=== PATIENT | male | born 1955 | race Caucasian/White ===

== ENCOUNTER 2016-12-07 21:14 | Inpatient (IN) | payer MEDICARE, MEDICAID ==
[~2016-12-07] VITALS: Ht 172.7 cm; Wt 65.1 kg
[~2016-12-07 21:14] MED LIST: ALAWAY 10 ML10 ML OP; ALBUTEROL2 PUFFS/17 IN; ALLOPURINOL100 MG PO; AMBIEN 10MG TAB10 MG PO; AMLO5TAB PO; ASPIRIN 325MG325 MG PO; BUSPAR 10MG TAB10 MG PO; CHOLESTEROL MED OR; CIPRO 500MG TA500 MG PO; CITALOPRAM20 MG PO; COLCRYS0.6 MG PO; Cephalexin500 MG PO; FLAGYL500 MG PO; FOLIC ACID 1MG T1 MG PO; K-DUR 20MEQ TA20 MEQ PO; LEVSIN0.125 MG OR; LOPRESSOR 50 MG50 MG PO; MAGNESIUM400 MG PO; METOPROLOL SUCC50 M1 PO; NEURONTIN 300M300 MG PO; NEXIUM40 MG PO; NICODERM C21 MG/24 H TD; NORCO 325 MG-51 TAB PO; PANCREASE MT OR; PHENERGAN25 M3 PO; PREDNISONE 20MG20 MG PO; RANITIDINE HCL150 MG PO; SEPTRA DS 800 M1 TAB PO; SIMVASTATIN40 MG PO; THIAMINE 100MG100 MG PO; TRAZODONE 50MG50 MG PO; VENTOLIN H0.09 MG/AC IH; ZANTAC 150150 MG PO
[2016-12-07 21:15] VITALS: BP 123/63
--- NOTE | 2016-12-07 22:54 | Emergency Room Report ---
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 N Clinical Suspician of Infection? N Mental Status: 1 - Regular (Normal Baseline) Sepsis Risk:Severe Sepsis Risk Have you (or family members/close friends) recently traveled outside the [place]? N If Yes, where/when: Have you had exposure to infectious disease within the past month? N TB? Other? Specify: Source patient, RN notes reviewed, family, EMS, old records Exam Limitations no limitations Comment pt with confusion and dec ambulation with dec po intake over the last 2 days- he has falls and no etoh over the last 2 days with hx of pancreatitis - Cardiac Chest Pain Chest pain indicative of cardiac No Timing/Duration this evening Severity moderate ALLERGIES Coded Allergies: No Known Allergies (09/07/16) Home Medications Active Scripts POTASSIUM CHL (Potassium Chloride) 20 MEQ PO DAILY #30 TAB Ref 2 Prov: 04/01/16 Ketotifen Fumarate (Alaway 10 Ml) 1-2 DROP OP TIDP PRN Dry eye #1 BOT Ref 2 Prov: 04/01/16 Hyoscyamine Sulfate (Levsin) 0.125 MG OR Q6 #20 TAB Prov: 06/18/14 PROMETHAZINE HCL (Phenergan 25MG Tab (Geq)) 25 MG PO Q6HP PRN N/V #20 TAB Prov: 06/18/14 Reported Medications Amlodipine Besylate (Amlodipine) 5 MG PO DAILY #30 TAB ASPIRIN (Aspirin 325MG) 325 MG PO DAILY Colchicine (Colcrys) 0.6 MG PO DAILYP PRN GOUT Allopurinol 100 MG PO BID ALBUTEROL (Ventolin Hfa) 2 PUFFS IH Q4HP PRN BREATHING Simvastatin (Simvastatin 40MG Tab) 40 MG PO QPM Metoprolol Tartrate (Lopressor) 50 MG PO DAILY Ranitidine Hcl (Ranitidine 150MG) 300 MG PO QHS TRAZODONE HCL (Trazodone HCl) 50 MG PO QHSP PRN SLEEP AID History Medical History General CAD? No Angina: Yes [place]: No Hypertension? Yes Hyperlipidemia? Yes CHF? No DVT? No PE? No COPD? Yes Asthma? Yes Anemia? No GERD? Yes Gastric ulcers? No GI Bleed? No Hernia? No Thyroid Problems? No Hypothyroidism? No CVA? No Seizures? No Diabetes? No Insulin Dependent: No Insulin Pump: No Home FSBS? No Renal Insuffiency? No End Stage Renal Disease? No UTI? No Stones? No BPH? No GB Disease: No Nephritic Syndrome? No Asplenia? No Hepatitis? No Sickle Cell Disease? No Arthritis? Yes Migraines? No Cataracts? No Glaucoma? No MRSA? No HIV? No TB? No Anxiety? Yes Depression? No Cancer? Yes Site: PROSTATE, COLON More? Yes Additional hx: PANCREATITIS OSTEOARTHRITIS Immunization Hx DT/Tetanus Unknown Flu Refused Pneumonia Received In Past Surgical Hx Previous Surgery?Y COLOSTOMY-COLON PERF. REVERSAL OF COLOSTOMY Prostate Procedures Family History Family Hx Diabetes Yes CAD No Hypertension Yes Hyperlipidemia Yes Cancer No TB No Social History Smoking Hx Smoker: Current Every Day Smoker Tobacco: Yes Type Cigarettes Packs/day 1 1/2 - 2 Packs Alcohol Alcohol: Yes Drugs none Review of Systems All Other Systems Reviewed and Negative Constitutional see HPI, denies fever, weakness Eyes denies drainage ENT denies: ear discharge, epistaxis, throat pain. Respiratory cough, shortness of breath, denies wheezing Cardiovascular denies chest pain, denies syncope Gastrointestinal see HPI, abdominal pain, denies diarrhea, nausea, denies vomiting Genitourinary denies: dysuria, frequency, hesitancy, hematuria. Musculoskeletal denies back pain, denies joint pain, denies joint swelling, denies neck pain Skin denies rash Psychiatric/Neurological denies headache, denies seizure Physical Exam Vital Signs Vital Signs Date Time Temp Pulse Resp B/P Pulse O2 O2 Flow FiO2 Ox Delivery Rate 12/08 0109 99.1 120 20 97 2 12/08 0007 100.7 120 20 111/72 97 2 12/07 2301 100.7 112 20 128/72 97 2 12/07 2301 98.6 140 22 135/98 97 2 12/07 2257 28 97 2 12/075 98.3 145 28 123/63 97 2 - WBC >12,000 or <4,000 or 10% bands? 2 or more SIRS Criteria Met? B/P:111/72 MAP:83 Creatinine >2.0? UA output<0.5ml/kg/hr for 2 hrs? Platelet count >100,000? Lactate >2.0mmol/1? INR >1.2 or PTT > than 60 sec? Evidence of Organ Dysfunction? Provider documented clinical suspician of infection? N Sepsis Criteria Count: 2 Sepsis Risk: Severe Sepsis Risk General Appearance no apparent distress Eye Exam - bilateral eye PERRL, bilateral eye EOMI Ear, Nose, Throat dry mm Neck supple Respiratory Status No: respiratory distress. Lung Sounds bilateral: decreased breath sounds. Cardiovascular no JVD, tachycardia, gallop/S4 Peripheral Pulses Pulses normal Yes Gastrointestinal soft, no organomegaly, no guarding, no rebound, tenderness Back normal inspection Extremities no calf tenderness, pedal edema Strength 4 Upper Ext (L), 4 Upper Ext (R), 4 Lower Ext (L), 4 Lower Ext (R) Male Genitalia normal genitalia Neurologic no focal changes Glascow Coma Scale Glascow Coma Scale Response Value EYE response: 4 Spontaneously 4 MOTOR response: 6 OBEYS 6 VERBAL response: 4 Disoriented & Converses 4 Total 14 Reflexes Reflexes normal No Mental status confused Skin intact Medical Decision Making LABS/Meds/Orders Pt receiving controlled substance in ED? No Results/Orders Laboratory Tests 12/08/16 0000: Amylase 277 H, Lipase 1927 H 12/07/16 2340: Lactic Acid 1.5 12/07/16 2240: Vitamin B12 Pending, Folate Pending 12/07/16 2240: Magnesium 1.3 L, Creatine Kinase 323 H, CK-MB (CK-2) Rel Index 1.9, CK and CKMB Interp 6.0 H, Troponin I < 0.02, ESR 7 12/07/16 2240: Sodium 130 L, Potassium 2.7 *L, Chloride 88 L, Carbon Dioxide 26, BUN 47 H, Creatinine 2.5 H, Estimated Creat Clear 21 L, Estimated GFR (MDRD) 26, Glucose 124 H, Calcium 8.3 L, Total Bilirubin 2.8 H, AST 54 H, ALT 31, Alkaline Phosphatase 126 H, Total Protein 8.4 H, Albumin 3.8, Globulin 4.6 H, Albumin/ Globulin Ratio 0.8 L, WBC 10.6, RBC 5.30, Hgb 18.0, Hct 51.5, MCV 97.2, RDW 14.3, Plt Count 70 L, MPV 10.5 H, Gran % 90.0 H, Gran # 9.5 H, Total Counted Pending, Lymphocytes % 6.0 L, Monocytes % 3.8, Eosinophils % 0.1, Basophils % 0.1, Neutrophils Pending, Lymphocytes (Manual) Pending, Lymphocytes # 0.6 L, Monocytes # 0.4, Eosinophils # 0.0, Basophils # 0.0, Platelet Estimate Pending, PUBS MCHC 35.0, MCH 34.0 H, Alcohols 5, Urine Color ORANGE, Urine Appearance CLEAR, Urine pH 5.5, Ur Specific [place] >= 1.030, Urine Protein TRACE H, Urine Ketones TRACE H, Urine Blood TRACE-INTACT, Urine Nitrate NEGATIVE, Urine Bilirubin NEGATIVE, Urine Urobilinogen 1.0, Ur Leukocyte Esterase NEGATIVE, Urine RBC 3-5, Urine WBC 3-5, Amorphous Sediment 1+, Urine Bacteria 1+, Hyaline Casts 10-20, Urine Mucus 1+, Urine Glucose NEGATIVE Current Medication Orders Sig/Davide Start time Last Medication Dose Route Stop Time Status Admin Acetaminophen 650 MG ONCE ONE 12/08 114 DC MA 12/09 115 Acetaminophen 0 .STK-MED ONE 12/08 114 DC MA Lorazepam 1 MG ONCE ONE 12/08 114 DC IV 12/08 011 Potassium Chloride/ 100 ML ONCE ONE 12/08 114 AC Water IV 12/08 0314 Lorazepam 0 .STK-MED ONE 12/08 113 DC .ROUTE Potassium Chloride/ 100 ML .STK-MED ONE 12/08 113 DC Water IV Lactated Ringer's 1,000 ML .STK-MED ONE 12/08 010 DC IV Sodium Chloride 1,000 ML .STK-MED ONE 12/08 58 DC IV Miscellaneous 0 .STK-MED ONE 12/08 50 DC Medication XX Folic Acid 1 MG ONCE ONE 12/07 2344 DC 12/08 PO 12/07 2345 005 Miscellaneous 1 UNIT ONCE ONE 12/07 2344 DC 12/08 Medication XX 12/076 0058 Multivitamins 10 ML .[id number] 12/07 2344 AC 12/08 Magnesium Sulfate 2 GM IV 09/15 0626 0057 Thiamine HCl 100 MG Lactated Ringer's 1,000 ML Sodium Chloride 1,000 ML .STK-MED ONE 12/07 2307 DC IV Sodium Chloride 1,000 ML .Q1H1M 12/07 2300 DC 12/07 IV 12/08 0000 2308 Sodium Chloride 10 ML PRN PRN 12/07 2300 AC IV 12/08 2256 Sodium Chloride 10 ML PRN PRN 12/07 2130 AC IV 12/08 2128 Orders Procedure Date/time Status DIET-NOTHING BY MOUTH 12/08 B Active Decision to admit 12/08 0118 Active LIPASE 12/08 0036 Complete AMYLASE 12/08 0036 Complete FOLIC ACID (FOLATE, SERUM) 12/07 2347 Active VITAMIN B12 12/[address] HEAD W/O CONTRAST 12/[address] ABD & PELVIS W/O CONTRAST 12/07 2300 Active ELECTROCARDIOGRAM REQUEST 12/07 2253 Active MAGNESIUM 12/07 2253 Complete CARDIAC ENZYMES 12/07 225 Complete ALCOHOL 12/[address] SCAN REQ 12/07 225 Complete URINARY CATHETER INSERT 12/07 2252 Active CULTURE, BLOOD 12/07 2252 Active URINALYSIS/COMPLETE 12/07 225 Complete LACTIC ACID 12/07 2252 Complete SED RATE 12/07 2252 Complete DIFFERENTIAL-WBC 12/07 2240 Active 12 LEAD EKG-BESSON (INITIAL) 12/08 2127 Active ELECTROCARDIOGRAM REQUEST 12/08 2127 Active CHEST-PORTABLE 12/08 2127 Active IV SALINE LOCK 12/08 2127 Active CBC WITH AUTO DIFF 12/08 2127 Active CHEM 12 PROFILE 12/08 2127 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 ST/Twave chgs XRAY/CT/US XRAY/CT/US 1 XRAY chest XR interpretation by reviewed by me Xray Results abnormal (copd) XRAY/CT/US 2 CT head, abdomen, pelvis CT interpretation by discussed w/radiologist Time results known: 0123 CT Results abnormal Departure Departure Time of Disposition 0112 Disposition Still a Patient Clinical Impression Primary Impression: Pancreatitis, acute Qualifiers: Pancreatitis type: unspecified pancreatitis type Acute pancreatitis complication: unspecified Qualified Code: K85.90 - Acute pancreatitis without necrosis or infection, unspecified Secondary Impressions: Alcohol withdrawal delirium, Hypokalemia Condition STABLE Referrals Javi Gao MD discussed with dr moore ED Critical Care Critical Care Yes Time spent 30-74 min Vital system(s) involved: Metabolic Failure I was present at bedside for Coordinating pt's care, Interpreting EKGs/Strips , Reviewing lab results, Reviewing old records, Discussing pt condition, For re- examinations, Examining radiographs at 0126
[2016-12-07 23:06] LABS: LYMPH # 0.6 K/mm3 (0.7-4.5)
[2016-12-07 23:14] LABS: URINE BLOOD TRACE-INTACT (NEG)
[2016-12-07 23:47] LABS: URINE BILIRUBIN - DIPSTICK NEGATIVE (NEG)
[2016-12-08] VITALS (17 sets, daily range): BP systolic 115–168; BP diastolic 58–97
--- NOTE | 2016-12-08 05:22 | RADIOLOGY REPORT PS360 ---
CT HEAD W/O CONTRAST HISTORY: Headache/pain following injury, contusion FALLS/ABD PAIN ORDERING PHYSICIAN: Carmine Louise MD PATIENT AGE: 61 years COMPARISON: 09/07/2016 TECHNIQUE: Axial images obtained without contrast. Brain and bone windows reviewed. FINDINGS: No midline shift, mass effect, intracranial hemorrhage, hydrocephalus, or extra-axial fluid collection is evident. There is mild generalized atrophy with mild periventricular ischemic gliotic change. An old small lacunar infarction versus dilated perivascular space noted in the right subinsular region The calvarium has an unremarkable appearance. No mastoid effusion. The visualized paranasal sinuses are unremarkable. IMPRESSION: No change with no acute finding.
[2016-12-08 07:18] LABS: AMPHETAMINES/METAMPHETAMINES NEGATIVE ng/mL (<1000)
--- NOTE | 2016-12-08 07:38 | PHARMACY CLINIC NOTE ---
Patient Demographics Patient Demographics Admission date: 12/08/16 Date: 12/08/16 Time: 0736 Allergies Coded Allergies: No Known Allergies (09/07/16) HEIGHT- FT: 5 IN: 8.00 K.063 VTE General Information Labs: Laboratory Tests 12/07 2240 Hematology Hgb (14.1 - 18.0 g/dL) 18.0 Hct (42.0 - 52.0 %) 51.5 Plt Count (142 - 424 K/mm3) 70 L Disclaimer The following section includes nursing documentation that has been pulled in for pharmacy review. Patient's VTE score: 4 Patient's VTE Risk: LOW RISK Clinical trial participant? No VTE prophylaxis [id number] VTE prophylaxis ordered? Yes Type of prophylaxis/treatment: DEONDRE at 0737
--- NOTE | 2016-12-08 07:49 | HISTORY AND PHYSICAL REPORT ---
Demographics: Admit date: 12/07/16 Chief complaint: Mental status change/abdominal pain PRIMARY DIAGNOSIS: ACUTE PANCREATITIS Allergies: Coded Allergies: No Known Allergies (09/07/16) History of present illness: History of present illness: 61-year-old white male, well-known to the hospital service who infrequently follows up in my office, who has a long history of alcoholism with multiple complications who has refused treatment/admission the past to rehabilitation facilities. Reported to the emergency department with abdominal pain, mental status change and was found to have evidence biochemically and radiographically of pancreatitis. Admitted to hospital. Note that in the emergency department he had a seizure, treated with Ativan. Has also had some behavior disturbance and agitation treated with haloperidol. When I examined him initially on the floor this morning he is somnolent and sleeping. Past medical history: Family HX Diabetes Yes CAD No Hypertension Yes Hyperlipidemia Yes Cancer No TB No Immunization HX DT/Tetanus Unknown Flu Refused Pneumonia Received In Past TB Test in last year No General CAD? No Angina: Yes [place]: No Hypertension? Yes Hyperlipidemia? Yes CHF? No DVT? No PE? No COPD? Yes Asthma? Yes Anemia? No GERD? Yes Gastric ulcers? No GI Bleed? No Hernia? No Thyroid Problems? No Hypothyroidism? No CVA? No Seizures? No Diabetes? No Insulin Dependent: No Insulin Pump: No Home FSBS? No Renal Insuffiency? No UTI? No Stones? No BPH? No GB Disease: No Nephritic Syndrome? No Asplenia? No Hepatitis? No Sickle Cell Disease? No Arthritis? Yes Migraines? No Cataracts? No Glaucoma? No MRSA? No HIV? No TB? No Anxiety? Yes Depression? No Cancer? Yes Site: PROSTATE, COLON More? Yes Additional hx: PANCREATITIS OSTEOARTHRITIS Past Surgical HX Previous Surgery?Y COLOSTOMY-COLON PERF. REVERSAL OF COLOSTOMY Prostate Procedures Current home meds: Active Scripts POTASSIUM CHL (Potassium Chloride) 20 MEQ PO DAILY #30 TAB Ref 2 Prov: 04/01/16 Ketotifen Fumarate (Alaway 10 Ml) 1-2 DROP OP TIDP PRN Dry eye #1 BOT Ref 2 Prov: 04/01/16 Hyoscyamine Sulfate (Levsin) 0.125 MG OR Q6 #20 TAB Prov: 06/18/14 PROMETHAZINE HCL (Phenergan 25MG Tab (Geq)) 25 MG PO Q6HP PRN N/V #20 TAB Prov: 06/18/14 Reported Medications Amlodipine Besylate (Amlodipine) 5 MG PO DAILY #30 TAB ASPIRIN (Aspirin 325MG) 325 MG PO DAILY Colchicine (Colcrys) 0.6 MG PO DAILYP PRN GOUT Allopurinol 100 MG PO BID ALBUTEROL (Ventolin Hfa) 2 PUFFS IH Q4HP PRN BREATHING Simvastatin (Simvastatin 40MG Tab) 40 MG PO QPM Metoprolol Tartrate (Lopressor) 50 MG PO DAILY Ranitidine Hcl (Ranitidine 150MG) 300 MG PO QHS TRAZODONE HCL (Trazodone HCl) 50 MG PO QHSP PRN SLEEP AID Social Hx: Smoking HX Tobacco Yes Type Cigarettes Packs/day 1 1/2 - 2 PACKS Are you/the child exposed to second-hand smoke: Yes Alcohol Alcohol: Yes How much do you drink UNABLE TO ASSESS For how long UNABLE TO ASSESS When was your last drink UNABLE TO ASSESS Comment PT. UNABLE TO ANSWER QUESTIONS DUE TO MENTAL STATUS. Hx of Drug Use Drug Use? No Patien't marital status is single Patient's support system is fair Comment: Patient has been resistant to family efforts to engage in rehabilitation. Review of systems: Constitutional No: no symptoms reported. Respiratory No: no symptoms reported. Cardiovascular No no symptoms reported Gastrointestinal/Abdominal No no symptoms reported Genitourinary No: no symptoms reported. Musculoskeletal No: no symptoms reported. Neurological No: see HPI. Comment: Review of systems unobtainable secondary to patient's obtunded status. Exam: Lab data for last 24 hours: Laboratory Tests 12/08/16 0600: Opiates Screen NEGATIVE, Urine Methadone Screen NEGATIVE, Barbiturates NEGATIVE, Phencyclidine Screen NEGATIVE, Amphetamines Screen NEGATIVE, Benzodiazepines Screen NEGATIVE, Cocaine Screen NEGATIVE, Marijuana (THC) Screen NEGATIVE 12/08/16 0000: Amylase 277 H, Lipase 1927 H 12/07/16 2340: Lactic Acid 1.5 12/07/16 2240: Magnesium 1.3 L, Creatine Kinase 323 H, CK-MB (CK-2) Rel Index 1.9, CK and CKMB Interp 6.0 H, Troponin I < 0.02, ESR 7 12/07/16 2240: Sodium 130 L, Potassium 2.7 *L, Chloride 88 L, Carbon Dioxide 26, BUN 47 H, Creatinine 2.5 H, Estimated Creat Clear 21 L, Estimated GFR (MDRD) 26, Glucose 124 H, Calcium 8.3 L, Total Bilirubin 2.8 H, AST 54 H, ALT 31, Alkaline Phosphatase 126 H, Total Protein 8.4 H, Albumin 3.8, Globulin 4.6 H, Albumin/ Globulin Ratio 0.8 L, WBC 10.6, RBC 5.30, Hgb 18.0, Hct 51.5, MCV 97.2, RDW 14.3, Plt Count 70 L, MPV 10.5 H, Gran % 90.0 H, Gran # 9.5 H, Lymphocytes % 6.0 L, Monocytes % 3.8, Eosinophils % 0.1, Basophils % 0.1, Lymphocytes # 0.6 L, Monocytes # 0.4, Eosinophils # 0.0, Basophils # 0.0, PUBS MCHC 35.0, MCH 34.0 H, Alcohols 5, Urine Color ORANGE, Urine Appearance CLEAR, Urine pH 5.5, Ur Specific [place] >= 1.030, Urine Protein TRACE H, Urine Ketones TRACE H, Urine Blood TRACE-INTACT, Urine Nitrate NEGATIVE, Urine Bilirubin NEGATIVE, Urine Urobilinogen 1.0, Ur Leukocyte Esterase NEGATIVE, Urine RBC 3-5, Urine WBC 3-5, Amorphous Sediment 1+, Urine Bacteria 1+, Hyaline Casts 10-20, Urine Mucus 1+, Urine Glucose NEGATIVE Microbiology 12/08 2339 BLOOD: Anaerobic Blood Culture - RECD 12/08 2339 BLOOD: Aerobic Blood Culture - RECD 12/08 2339 BLOOD: Anaerobic Blood Culture - RECD 12/08 2339 BLOOD: Aerobic Blood Culture - RECD Admission vital signs: 1ST Vital Signs Result Date Time Pulse Ox 97 12/07 2114 B/P 123/63 12/07 2114 O2 Flow Rate 2 12/07 2114 Temp 98.3 12/07 2114 Pulse 145 12/07 2114 Resp 28 12/07 2114 O2 Delivery OXYGEN 12/08 0130 Additional information: Patient is sleeping. Does withdraw to painful stimuli. No focal deficits of facial drooping or flaccidity of extremities. Heart rate regular. Abdomen is nontender and soft but patient is sleeping and limits the accuracy of the exam. He is cachectic, appears much older than his stated age. Appears unkempt and grizzled. No peripheral edema. Capillary refill is intact. Plan: Problem List 1. Pancreatitis 2. Alcoholism /alcohol abuse 3. Alcohol intoxication 4. Seizure Plan: Patient with significant alcohol-related endorgan damage. Currently treat symptomatically in regards to his seizure issues, nothing by mouth status for pancreatitis. Hydration. Reassess neurologic status when he awakes. CT scan reviewed. Chest x-ray report pending. Patient was febrile on admission. Multiple reasons for this. Currently no evidence of infectious disease causation of the fever. at 0748
[2016-12-08 07:52] LABS: LYMPH # 0.5 K/mm3 (0.7-4.5)
--- NOTE | 2016-12-08 07:55 | RADIOLOGY REPORT PS360 ---
CHEST-PORTABLE COMPARISON: Portable upright chest 02/03/2013 HISTORY: Shortness of breath TECHNIQUE: Portable upright chest FINDINGS: The lung chase are well expanded and appear clear of infiltrate. The cardiac silhouette and vascularity are normal and is no pleural fluid. There are minor degenerative changes of the thoracic spine. IMPRESSION: Essentially negative portable upright chest
[2016-12-08 08:41] LABS: HEMOGLOBIN 15.2 g/dL (14.1-18.0)
--- NOTE | 2016-12-08 09:37 | RADIOLOGY REPORT PS360 ---
CT ABD PELVIS W/O CONTRAST COMPARISON: CT scan of the abdomen and pelvis noncontrast 09/07/2016 HISTORY: Altered mental status, abdominal pain, clinical suspicion of pancreatitis TECHNIQUE: Multiaxial scans obtained from hemidiaphragms to the pelvic floor and were performed with oral contrast only. Sagittal coronal reformats were evaluated as well. FINDINGS: The lower lung chase are clear of infiltrate although there are bullous changes present were noted previously. There is no pleural fluid. There appears be mild diffuse fatty infiltration of the liver. Stomach and spleen appear grossly normal. There are prominent peripancreatic inflammatory changes noted basely about the head of the pancreas. There are couple of calcination is in the head of the pancreas consistent with history of chronic pancreatitis. The adrenal glands are normal. The kidneys are normal size and there are no calculi and is no obstructive uropathy of either kidney. There is a small amount of fluid in the right paracolic gutter and left paracolic gutter as well. There is arteriosclerotic calcification of the abdominal aorta but is no aneurysm. The small bowel is grossly normal. I do not definitely identify the appendix but there are no pericecal inflammatory changes. There is oral contrast in the distal small bowel and right colon. There is a Lo catheter at the base of urinary bladder and there are surgical clips in the prostate bed and has been apparent previous resection of the prostate. IMPRESSION: Findings consistent with prominent acute pancreatitis along with some minimal findings of chronic pancreatitis, other nonacute findings as described above. I basically agree with the [facility] report.
[2016-12-08 11:54] LABS: NEUTROPHILS 86 % (42-76)
[2016-12-09] VITALS (18 sets, daily range): BP systolic 138–190; BP diastolic 82–105
[2016-12-09 07:50] LABS: LYMPH # 0.9 K/mm3 (0.7-4.5)
[2016-12-09 07:54] LABS: BILIRUBIN, INDIRECT 1.19 mg/dL (0-0.9)
[2016-12-09 08:14] LABS: HEMOGLOBIN 13.6 g/dL (14.1-18.0)
--- NOTE | 2016-12-09 08:17 | ACUTE CARE PROGRESS NOTE (QUA) ---
Progress Notes Subjective Date 12/09/16 Time 0815 Note Patient is more awake, alert. Pleasant. Reports that his belly still hurts. Tolerated sips and chips without problems. Mild coughing. Nurses report no seizures. Objective Findings Last VS-Temp:97.6 B/P:157/91 Pulse:115 Resp:20 SaO2:95 ROOM AIR Last weight lbs:143 oz:7 K.063 Method:Bed Scales Exam General appearance: alert Eyes: anicteric Neck: non-tender, no carotid bruit Cardiovascular: no JVD, no ectopics, PMI normal Respiratory: aerating well (mild wheezing bilaterally) ABD: soft (minimal epigastric tenderness) Assessment/Plan Problem List 1. Pancreatitis 2. Alcoholism /alcohol abuse 3. Alcohol intoxication 4. Seizure 5. COPD (chronic obstructive pulmonary disease) Patient condition Improving Plan: continue current care, advance diet to clear liquids, add nebulizers for his chronic obstructive pulmonary disease/wheezing. Continue pain control, seizure precautions. This inpt stay is expected to cross 2 MNs from start of care Yes at 0816
[2016-12-10] VITALS (13 sets, daily range): BP systolic 119–177; BP diastolic 67–105
[2016-12-10 06:58] LABS: HEMOGLOBIN 13.4 g/dL (14.1-18.0); LYMPH # 1.3 K/mm3 (0.7-4.5); LYMPH % 15.1 % (10-50)
--- NOTE | 2016-12-10 07:37 | ACUTE CARE PROGRESS NOTE (QUA) ---
Progress Notes Subjective Date 12/10/16 Time 0734 Patient/family reports: feeling better (better PO) Nursing reports: alert Objective Findings Last VS-Temp:98.3 B/P:177/91 Pulse:118 Resp:20 SaO2:97 ROOM AIR Last weight lbs:143 oz:7 K.063 Method:Bed Scales Exam General appearance: alert, active Eyes: anicteric ENT: normal exam, mucous membranes moist Neck: normal inspection, non-tender Cardiovascular: normal sinus rhythm Respiratory: aerating well ABD: soft (mildly tender/improved), distended Neuro: normal exam Assessment/Plan Problem List 1. Pancreatitis 2. Alcoholism /alcohol abuse 3. Alcohol intoxication 4. Seizure 5. COPD (chronic obstructive pulmonary disease) Patient condition Improving Plan: continue current care, advance diet in am if tolerated. Replace electrolytes This inpt stay is expected to cross 2 MNs from start of care Yes at 0737
[2016-12-11 04:20] VITALS: BP 157/88
[2016-12-11 06:31] LABS: HEMOGLOBIN 12.5 g/dL (14.1-18.0); LYMPH # 1.5 K/mm3 (0.7-4.5); LYMPH % 20.1 % (10-50)
--- NOTE | 2016-12-11 08:16 | ACUTE CARE PROGRESS NOTE (QUA) ---
Progress Notes Subjective Date 12/11/16 Time 0813 Note Overall patient feels better today. Patient ate full liquids well yesterday and is eating a low-fat breakfast today without much pain. Did have temperature elevation over 100 degrees yesterday evening. Has a cough. Denies dysuria or urinary problems after Lo catheter was pulled yesterday. Lungs have rhonchi and expiratory crackles in the RIGHT base, new over previous exams. Heart rate regular, abdomen soft, much less tenderness in the epigastric area and normal bowel sounds. No edema. Objective Findings Last VS-Temp:100.9 B/P:157/88 Pulse:112 Resp:22 SaO2:96 ROOM AIR Last weight lbs:143 oz:7 K.063 Method:Bed Scales Assessment/Plan Problem List 1. Pancreatitis 2. Alcoholism /alcohol abuse 3. Alcohol intoxication 4. Seizure 5. COPD (chronic obstructive pulmonary disease) 6. Febrile illness Patient condition Improving Plan: continue current care, overall patient improving from a pancreatitis standpoint. Febrile illness and cough probably represent chronic obstructive pulmonary disease exacerbation. Treat with antibiotics as noted. Check chest x- ray. Check urinalysis given recent Lo placement. Care management evaluation for alcohol treatment options. Discussed with patient his overall extremely poor prognosis if he continues to drink any kind of alcohol. He acknowledges this. This inpt stay is expected to cross 2 MNs from start of care Yes at 0815
[2016-12-11 08:53] VITALS: BP 157/88
--- NOTE | 2016-12-11 15:06 | RADIOLOGY REPORT PS360 ---
CHEST(2 VIEWS-NOT PORTABLE) HISTORY: fever, cough ORDERING PHYSICIAN: Javi Gao MD PATIENT AGE: 61 years COMPARISON: 12/07/2016 FINDINGS: Unremarkable cardiovascular structures. There is COPD with chronic changes. Nodularity is present in the left upper lobe overlying the second interspace anteriorly. This may be due to an area of pulmonary fibrosis but is slightly more prominent compared to older studies. Continued follow-up recommended. There is a mildly displaced left ninth rib fracture anteriorly. And she density is present in the right lung base consistent with an area of atelectasis or infiltrate with small effusion. IMPRESSION: 1. Atelectasis and/or infiltrate with small effusion in the right lung base. 2. COPD with chronic changes with slight increase in size of nodular opacity left upper lobe possibly related to the technique/positioning. Continued follow-up recommended. CT may provide further evaluation of clinically warranted.
[2016-12-11 16:00] VITALS: BP 155/87
[2016-12-11 20:16] VITALS: BP 155/88
[2016-12-12 04:30] VITALS: BP 162/94
[2016-12-12 06:42] LABS: HEMOGLOBIN 12.3 g/dL (14.1-18.0); LYMPH # 1.4 K/mm3 (0.7-4.5); LYMPH % 18.4 % (10-50)
[2016-12-12 07:31] VITALS: BP 147/85
--- NOTE | 2016-12-12 08:09 | ACUTE CARE PROGRESS NOTE (QUA) ---
Progress Notes Subjective Date 12/12/16 Time 0800 Note Patient is sitting on the side of bed eating breakfast. Reports he feels better. He did not have any seizures through the night. He did have some fevers yesterday. Alert and oriented 3. Rate and rhythm regular. No lower extremity edema. Pulses 2+ bilaterally. Lung sounds with scattered rhonchi posteriorly. Abdomen soft nontender RIGHT upper quadrant and epigastric area. Normoactive bowel sounds. Patient/family reports: no complaints Nursing reports: no complaints Objective Findings Last VS-Temp:98.5 B/P:147/85 Pulse:110 Resp:20 SaO2:97 ROOM AIR Last weight lbs:143 oz:7 K.[id number] Method:Bed Scales Reviewed: medications, vital signs, lab results, radiology report Assessment/Plan Problem List 1. Pancreatitis 2. Alcoholism /alcohol abuse 3. Alcohol intoxication 4. Seizure 5. COPD (chronic obstructive pulmonary disease) 6. Febrile illness Patient condition Stable Plan: continue current care This inpt stay is expected to cross 2 MNs from start of care Yes Comments: Continue on antibiotics. Stressed importance of refraining from ETOH use. Care management consulted for alcohol treatment after discharge. Start Keppra for seizures. If no further fevers through the day will consider discharge tomorrow. at 0809
[2016-12-12 09:04] LABS: URINE BILIRUBIN - DIPSTICK NEGATIVE (NEG); URINE BLOOD NEGATIVE (NEG)
[2016-12-12 15:38] VITALS: BP 124/88
[2016-12-12 19:55] VITALS: BP 143/83
[2016-12-12 20:18] VITALS: BP 143/83
[2016-12-13 03:56] VITALS: BP 143/65
--- NOTE | 2016-12-13 07:48 | ACUTE CARE PROGRESS NOTE (QUA) ---
Progress Notes Subjective Date 12/13/16 Time 0747 Note Overall patient feels good, ate a good supper last night and breakfast this morning. Lungs have some rhonchi, especially in the RIGHT lung field, air movement is good, no crackles. Heart rate regular. Abdomen is soft. He has no edema. He is alert and oriented 3. No seizures, no shaking. Objective Findings Last VS-Temp:98.0 B/P:143/65 Pulse:99 Resp:18 SaO2:98 ROOM AIR Last weight lbs:143 oz:7 K.063 Method:Bed Scales Assessment/Plan Problem List 1. Pancreatitis 2. Alcoholism /alcohol abuse 3. Alcohol intoxication 4. Seizure 5. COPD (chronic obstructive pulmonary disease) 6. Febrile illness Patient condition Improving Plan: continue current care, initiate discharge plan This inpt stay is expected to cross 2 MNs from start of care Yes at 0748
--- NOTE | 2016-12-13 07:51 | DISCHARGE SUMMARY STANDARD ---
Demographics Admit date: 12/07/16 Discharge date: 12/13/16 History of present illness History of present illness 61-year-old white male, well-known to the hospital service who infrequently follows up in my office, who has a long history of alcoholism with multiple complications who has refused treatment/admission the past to rehabilitation facilities. Reported to the emergency department with abdominal pain, mental status change and was found to have evidence biochemically and radiographically of pancreatitis. Admitted to hospital. Note that in the emergency department he had a seizure, treated with Ativan. Has also had some behavior disturbance and agitation treated with haloperidol. When I examined him initially on the floor this morning he is somnolent and sleeping. Hospital Course Hospital Course: Patient was admitted, kept nothing by mouth and hydrated. He had a couple doses of intravenous Ativan for significant shaking but no further seizure activity was noted after the initial incident in the emergency department. Blood counts and liver enzymes improved nicely. He had intravenous calcium replacement. Infiltrate on chest x-ray was noted. Patient experienced a low-grade fever and medication for community-acquired bronchopneumonia/chronic obstructive pulmonary disease exacerbation with azithromycin and ceftriaxone were started. Patient tolerated this well. He improved from an abdominal pain perspective and was advanced on his diet and tolerated this well with slow advancement over the next couple of days. Today he is tolerating a normal diet yesterday and this morning. Exam has improved as noted in my note today. Patient has had a couple of days of low-grade temperature elevations, but interestingly does not feel like he's had a fever, has had no chills or diaphoresis. Urinalysis is normal, white blood cell count normal. Chest x-ray unchanged. Etiology for low-grade fever includes drug fever, resolving pancreatitis, or residual chronic obstructive pulmonary disease exacerbation. Patient will be discharged home today with antibiotic coverage, continuing inhalers for his chronic obstructive pulmonary disease, and his other medications. Care management has arranged admission to an inpatient alcohol treatment unit in [place], [place]. Discharge diagnoses Problem List 1. Pancreatitis 2. Alcoholism /alcohol abuse 3. Alcohol intoxication 4. Seizure 5. COPD (chronic obstructive pulmonary disease) 6. Febrile illness Medications Medications: Discharge meds are as noted. Follow up Follow up in office in: 1 DAY with: OTHER at 0750
[2016-12-13] MEDS ORDERED: ZITHROMAX Z-PA250 M2 PO (07:53)
[2016-12-13] MEDS ORDERED: OMNICEF 300 MG300 MG PO (07:53)
[2016-12-13 08:00] VITALS: BP 133/84
[2016-12-13 09:00] VITALS: BP 107/62; BP 133/84
== END 2016-12-13 16:50 | disposition home or self-care (01) | DRG 439 ==
LOC: ER 21:14 → 2ND 12-08 01:23 → ER 12-08 01:23 → 2ND 12-08 03:58
PROVIDERS: Emergency Medicine; Internal Medicine Adolescent Medicine
DX: K85.90 Acute pancreatitis without necrosis or infection, unspecified (principal); J44.1 Chronic obstructive pulmonary disease with (acute) exacerbation; F10.221 Alcohol dependence with intoxication delirium; R56.9 Unspecified convulsions; I10 Essential (primary) hypertension; Z72.0 Tobacco use; R45.1 Restlessness and agitation
CPT/HCPCS: J0456; J1953; J2405

== ENCOUNTER 2017-02-20 06:47 | Day surgery (SDC) | payer MEDICARE, MEDICAID ==
[~2017-02-20 06:47] MED LIST changes: +OMNICEF 300 MG300 MG PO; +ZITHROMAX Z-PA250 M2 PO
[2017-02-20 08:39] VITALS: BP 132/69
== END 2017-02-20 08:40 | disposition home or self-care (01) ==
LOC: SDC 06:47
PROVIDERS: Ophthalmology
PROC: 08RJ3JZ Replacement of Right Lens with Synthetic Substitute, Percutaneous Approach (ICD-10-PCS; principal; 2017-02-20 08:00)
DX: H25.813 Combined forms of age-related cataract, bilateral (principal); H53.8 Other visual disturbances; H02.839 Dermatochalasis of unspecified eye, unspecified eyelid
CPT/HCPCS: V2632